=== PATIENT | female | born 1980 | race African-American/Black ===

== ENCOUNTER → 2019-09-15 | Outpatient (CLI) | payer MEDICARE, OTHER ==
[2019-09-15 11:21] LABS: African American GFR (CKD) >90 (>60 ml/min/1.73 sqM); Blood Urea Nitrogen 14 mg/dL (7-17); Non-African American GFR(CKD) >90 (>60 ml/min/1.73 sqM)
--- NOTE | 2019-09-15 12:50 | CT ---
EXAMINATION TYPE: CT abdomen wo/w con DATE OF EXAM: 09/15/2019 COMPARISON: NONE HISTORY: 39 year-old female right renal mass TECHNIQUE: Contiguous axial scanning of the abdomen before and after administration of 100 ml Isovue 300 IV contrast. Delayed images through the kidneys and coronal/sagittal reconstructions performed. CT DLP: 2119.9 mGycm Automated exposure control for dose reduction was used. FINDINGS: Heart normal size without pericardial effusion. Some mild hazy atelectasis at the lung bases without pleural effusion. No focal liver lesion or biliary ductal dilatation. Portal venous system is patent. Multiple gallstones measuring up to 2.1 cm filling the gallbladder lumen. Adrenal glands, left kidney, spleen, pancreas appear within normal limits. There is a 5.5 cm heterogeneously enhancing solid, hypervascular mass along the lateral right kidney, partially exophytic. No extension into the region of the renal sinus. IVC filter is present. No dilated small bowel, free fluid, or free air. No mesenteric or retroperitoneal lymphadenopathy rush ntified. Mild to moderate stool. No pericolonic inflammatory change. No osseous destructive process. IMPRESSION: 1. A PARTIALLY EXOPHYTIC, 5.5 CM HETEROGENEOUSLY ENHANCING, SOLID AND HYPERVASCULAR MASS ALONG THE LA TERAL RIGHT KIDNEY. NO EXTENSION INTO THE REGION OF THE RENAL SINUS. A CLEAR CELL RCC SHOULD BE EXCLU DED. 2. NO EVIDENT METASTATIC DISEASE. 3. CHOLELITHIASIS.
== END | disposition home or self-care (01) ==
LOC: EEVIPCON 10:11 → RADCTMAIN 10:11
PROVIDERS: ATTEND Urology
DX: K80.20 Calculus of gallbladder without cholecystitis without obstruction (principal); N28.89 Other specified disorders of kidney and ureter; D41.01 Neoplasm of uncertain behavior of right kidney; Z88.8 Allergy status to other drugs, medicaments and biological substances
CPT/HCPCS: 82565; 84520; 74170; 36415; Q9967

== ENCOUNTER 2019-10-29 10:39 | Inpatient (IN) | payer MEDICARE, OTHER ==
[2019-10-26 14:33] VITALS: BMI 39.1
--- NOTE | 2019-10-27 11:19 | P.HPIHPCON ---
History of Present Illness H&P Date: 10/29/19 Chief Complaint: right renal mass Ms Christopher is a 39 yo female with hx of 5.5 cm right sided renal mass. Her tumor is fairly complex and discussed with her that nephron sparing surgery is not feasible. I discussed with her the option of open radical nephrectomy and robotic radical nephrectomy. I discussed there is risk of bleeding, infection and injury to nearby organs. Discussed with her risk of injury to the liver, bowel, blood vessels. Discussed with her risk from anesthesia including heart attack, stroke, blood clot and even . Discussed risk of CKD. She understood all risks and agreed to proceed with robotic radical nephrectomy Consent for Procedure: I have explained the operation/procedure to the patient, including the risks, benefits, side effects, alternative therapies (including not receiving the proposed treatment or service), the likelihood of the patient achieving his/her goals, and potential recuperation problems for the procedure/sedation/analgesia, as well as any blood products, if indicated. I also explained to the patient the risks, benefits and side effects of the alternatives, as well as the risks related to not receiving the proposed procedure, care, treatment, or services. - Constitutional Constitutional: Denies anorexia, Denies chills, Denies fever - Cardiovascular Cardiovascular: Denies chest pain, Denies dyspnea on exertion - Respiratory Respiratory: Denies cough, Denies dyspnea - Gastrointestinal Gastrointestinal: Denies abdominal pain, Denies diarrhea, Denies nausea, Denies vomiting Past Medical History Past Medical History: Osteoarthritis (OA) Additional Past Medical History / Comment(s): traumatic brain injury years ago, hx. frequent UTI's History of Any Multi-Drug Resistant Organisms: None Reported Additional Past Surgical History / Comment(s): surg. related to TBI per caregiver Past Anesthesia/Blood Transfusion Reactions: No Reported Reaction Smoking Status: Never smoker - Past Family History Mother Family Medical History: Unable to Obtain Medications and Allergies Home Medications Medication Instructions Recorded Confirmed Type Cetirizine HCl [Zyrtec] 10 mg PO DAILY 10/26/19 10/26/19 History Cholecalciferol [Vitamin D3 (25 2,000 unit PO DAILY 10/26/19 10/26/19 History Mcg = 1000 Iu)] Divalproex Sodium [Depakote] 500 mg PO BID 10/26/19 10/26/19 History Loperamide [Imodium] 2 mg PO DIRECTED PRN 10/26/19 10/26/19 History Melatonin 3 mg PO HS 10/26/19 10/26/19 History Methyl Salicylate/Menthol 1 patch TOPICAL DAILY PRN 10/26/19 10/26/19 History [Salonpas Patch] Sertraline [Zoloft] 50 mg PO HS 10/26/19 10/26/19 History Allergies Allergy/AdvReac Type Severity Reaction Status Date / Time bupropion [From Wellbutrin] Allergy Unknown Verified 10/26/19 14:09 trazodone Allergy Unknown Verified 10/26/19 14:09 Surgical - Exam - General well developed, well nourished, no distress - Respiratory normal expansion, normal respiratory effort - Abdomen Abdomen: soft, non tender Assessment and Plan Assessment: 39 yo female with 5.5 cm right sided renal mass -OR for robotic radical nephrectomy on right
[~2019-10-29 10:39] MED LIST: DEXAMETHASONE SOD PHOSPHATE 10 MG/ML 1 ML VIAL IV ONE; MIDAZOLAM 2 MG/2 ML VIAL IV PRN; ONDANSETRON 4 MG/2 ML VIAL IVP ONE
[2019-10-29] MEDS ORDERED: ACETAMINOPHEN TAB 325 MG TAB PO PRN (11:41)
[2019-10-29] MEDS ORDERED: LIDOCAINE 1% (10MG/ML) FOR IV START INTRADERMA ONE ×2 (11:45)
[2019-10-29] MEDS: LACTATED RINGERS 1,000 ML IV SCH (11:45)
[2019-10-29] MEDS: HEPARIN SODIUM,PORCINE 5,000 UNIT/ML 1 ML VIAL SQ SCH ×2 (12:25→22:58)
[2019-10-29] MEDS ORDERED: LIDOCAINE 1% INJ 10MG/ML (20 ML MDV) ONE (12:51)
[2019-10-29] MEDS ORDERED: ePHEDrine SULFATE/0.9% NACL/PF 50 MG/5 ML SYRINGE IV ONE (12:51)
[2019-10-29] MEDS ORDERED: GLYCOPYRROLATE 0.2 MG/ML 2 ML VIAL ONE (12:51)
[2019-10-29] MEDS ORDERED: SUCCINYLCHOLINE CHLORIDE VIAL 200 MG/10 ML VIAL IV ONE (12:51)
[2019-10-29] MEDS ORDERED: PROPOFOL 10 MG/ML 20 ML VIAL IV ONE (12:51)
[2019-10-29] MEDS ORDERED: fentaNYL (PF) 50 MCG/ML 2 ML AMP ONE (12:51)
[2019-10-29] MEDS ORDERED: ROCURONIUM BROMIDE 10 MG/ML 5 ML VIAL IV ONE (12:51)
[2019-10-29] MEDS ORDERED: MIDAZOLAM 2 MG/2 ML VIAL ONE (12:51)
[2019-10-29] MEDS ORDERED: NEOSTIGMINE 1 MG/ML 10 ML VIAL ONE (12:51)
[2019-10-29] MEDS ORDERED: BUPIVACAIN-EPI 0.25%-1:200,000 30 ML VIAL SQ ONE ×2 (13:30→14:58)
--- NOTE | 2019-10-29 15:02 | P.OP ---
Date of Procedure: 10/29/19 Preoperative Diagnosis: right renal mass Postoperative Diagnosis: same Procedure(s) Performed: Robotic assisted radical nephrectomy Anesthesia: RIGO Surgeon: Dion Pepper Driver Utility Worker #1: Mitzi Stanley Estimated Blood Loss (ml): 75 Pathology: other (right kidney) Condition: stable Disposition: PACU Indications for Procedure: Ms Christopher is a 39 yo female with hx of 5.5 cm right sided renal mass. Her tumor is fairly complex and discussed with her that nephron sparing surgery is not feasible. I discussed with her the option of open radical nephrectomy and robotic radical nephrectomy. She elected to proceed with robotic assisted radical nephrectomy. I discussed there is risk of bleeding, infection and injury to nearby organs. Discussed with her risk of injury to the liver, bowel, blood vessels. Discussed with her risk from anesthesia including heart attack, stroke, blood clot and even . Discussed risk of CKD. She understood all risks and agreed to proceed with robotic radical nephrectomy Operative Findings: large right sided renal mass Description of Procedure: The patient was taken to the operating room . General anesthesia was induced. She was prepped and draped in sterile fashion, and was placed in modified flank position . All pressure points were padded. The abdominal insufflation was achieved with the Veress needle. A 8 mm camera port was placed. Robotic trocars and behavioral health assistant ports were placed under direct vision. a 5 mm liver retractor was placed. . The robot was docked into place. The colon was mobilized medially by incising along the white line of Toldt. Next the duodenum was kocherized. At this time the vena cava was exposed. Next the ureter was retracted anteriorly off the psoas muscle. Dissection proceeded cranially towards the renal hilum. A second renal artery at the level of lower pole was encountered and ligated using the vascular stapler. The upper pole attachments were dissected. Care was taken to safely mobilize the kidney free of all visceral structures.The renal vessels were dissected. At this point the renal vessels were exposed. Next the renal hilum was ligated using the vascular stapler. The adrenal gland was mobilized. Lateral and remaining kidney attachments were released. The ureter was dissected further distally. The ureter was ligated using the vascular stapler. The kidney was placed in an Endo Catch bag. Hemostatic agent were applied to the surgical field. The robot was then de-docked and the specimen was then removed by extending the behavioral health assistant port. Fascia was closed with one layer using #1 Stratafix. Skin was closed with subcuticular sutures and dermabond. The patient was awoken from general anesthesia in stable condition. Please refer to the final pathology report for final diagnosis
[2019-10-29] MEDS: HYDROmorphone 0.5 MG/0.5 ML SYRINGE IVP PRN ×2 (16:24→16:35)
[2019-10-29] MEDS: D5-0.45% NACL WITH KCL 20MEQ/L 1,000 ML IV SCH (18:04)
[2019-10-29] MEDS: HYDROmorphone 1 MG/ML 1 ML SYRINGE IVP PRN ×2 (18:05→20:12)
[2019-10-29] MEDS: MELATONIN 3 MG TABLET PO SCH (20:08)
[2019-10-29] MEDS: SERTRALINE 50 MG TAB PO SCH (20:08)
[2019-10-29] MEDS: DIVALPROEX 500 MG TABLET.DR PO SCH (20:08)
[2019-10-29 22:24] LABS: Basophils % (A) 0 %; Eosinophils # (A) 0.1 k/uL (0-0.7); Eosinophils % (A) 1 %; HCT 43.1 % (34.0-46.0); HGB 13.2 gm/dL (11.4-16.0); Hypochromasia Slight; Lymphocytes % (A) 13 %; MCH 30.2 pg (25.0-35.0); MCHC 30.7 g/dL (31.0-37.0); MCV 98.5 fL (80.0-100.0); Macrocytosis Slight; Mean Platelet Volume 9.2; Monocytes # (A) 0.6 k/uL (0-1.0); Monocytes % (A) 7 %; Neutrophils # (A) 6.3 k/uL (1.3-7.7); Neutrophils % (A) 78 %; Platelet Count 124 k/uL (150-450); RBC 4.38 m/uL (3.80-5.40)
[2019-10-30] MEDS: D5-0.45% NACL WITH KCL 20MEQ/L 1,000 ML IV SCH ×4 (02:32→23:53)
[2019-10-30] MEDS: DIVALPROEX 500 MG TABLET.DR PO SCH ×2 (07:04→21:08)
[2019-10-30] MEDS: HEPARIN SODIUM,PORCINE 5,000 UNIT/ML 1 ML VIAL SQ SCH ×3 (07:04→23:44)
[2019-10-30] MEDS: HYDROmorphone 1 MG/ML 1 ML SYRINGE IVP PRN ×5 (07:41→21:14)
[2019-10-30] MEDS: MELATONIN 3 MG TABLET PO SCH (21:08)
[2019-10-30] MEDS: SERTRALINE 50 MG TAB PO SCH (21:08)
--- NOTE | 2019-10-30 23:10 | P.PN ---
Subjective Progress Note Date: 10/30/19 Principal diagnosis: right renal mass POD #1 S/P right sided nephrectomy No acute overnight event, still having Incisional pain this am. Denies any N/V. Has been ambulating w/o difficulty Objective - Vital Signs Vital signs: Vital Signs Temp 98.2 F 10/30/19 20:53 Pulse 104 H 10/30/19 20:53 Resp 18 10/30/19 20:53 BP 138/95 10/30/19 20:53 Pulse Ox 93 L 10/30/19 20:53 Intake & Output 10/30/19 10/30/19 10/31/19 06:59 18:59 06:59 Intake Total 590 2380 Output Total 700 1590 Balance -110 790 Intake: Intake, IV Titration 1500 Amount D5-0.45% NaCl with KCl 1500 20Meq/l 1,000 ml @ 125 mls/hr IV .Q8H PAIGE Rx#: [id number] Oral 590 880 Output: Urine 700 1590 Uretheral (Funes) 400 550 Other: Voiding Method Indwelling Catheter Toilet # Voids 1 - Constitutional General appearance: Present: no acute distress - Gastrointestinal General gastrointestinal: Present: soft, tenderness (along the incision ). A bsent: distended - Psychiatric Psychiatric: Present: A&O x's 3 - Labs CBC & Chem 7: 10/29/19 21:54 Assessment and Plan Assessment: S/P right sided radical nephrectomy. Still having pain this am Plan: -regular diet -Ambulate -D/C funes -Pain control -Discharge home tomorrow
[2019-10-31] MEDS: LACTATED RINGERS 1,000 ML IV SCH (02:42)
[2019-10-31 04:49] VITALS: BP 148/94; PULSE 88; RESP 16
[2019-10-31 07:31] VITALS: TEMP 98.7
[2019-10-31] MEDS: DIVALPROEX 500 MG TABLET.DR PO SCH (08:23)
[2019-10-31] MEDS: HEPARIN SODIUM,PORCINE 5,000 UNIT/ML 1 ML VIAL SQ SCH (08:23)
--- NOTE | 2019-10-31 10:00 | P.DS ---
Providers Date of admission: 10/29/19 10:39 Expected date of discharge: 10/31/19 Attending physician: Dion Pepper MD Primary care physician: [facility] Course: The patient is a 39-year-old female with a 5.5 cm partially solid right renal mass consistent with renal cell carcinoma who underwent laparoscopic assisted right radical nephrectomy on the date of admission. She had moderate pain the first day postop but her pain was tolerable with oral analgesics by the second day postop. She was discharged on the second day postop at which time her incision appeared to be healing well. The patient was ambulatory and tolerating a regular diet. The pathology report was not completed at the time of discharge. She will be seen back by Dr. Pepper in 1 week for follow-up at which time he will review the report with her. She is to continue light activity and has no dietary limitations. Procedures: Laparoscopic-assisted right radical nephrectomy 11/28/2019 Patient Condition at Discharge: Good Plan - Discharge Summary Discharge Rx Participant: No New Discharge Prescriptions: No Action Cholecalciferol [Vitamin D3 (25 Mcg = 1000 Iu)] 2,000 unit PO DAILY Sertraline [Zoloft] 50 mg PO HS Cetirizine HCl [Zyrtec] 10 mg PO DAILY Methyl Salicylate/Menthol [Salonpas Patch] 1 patch TOPICAL DAILY PRN PRN Reason: Pain Melatonin 3 mg PO HS Loperamide [Imodium] 2 mg PO DIRECTED PRN PRN Reason: loose stools Divalproex Sodium [Depakote] 500 mg PO BID Discharge Medication List Cetirizine HCl [Zyrtec] 10 mg PO DAILY 10/26/19 [History] Cholecalciferol [Vitamin D3 (25 Mcg = 1000 Iu)] 2,000 unit PO DAILY 10/26/19 [History] Divalproex Sodium [Depakote] 500 mg PO BID 10/26/19 [History] Loperamide [Imodium] 2 mg PO DIRECTED PRN 10/26/19 [History] Melatonin 3 mg PO HS 10/26/19 [History] Methyl Salicylate/Menthol [Salonpas Patch] 1 patch TOPICAL DAILY PRN 10/26/19 [History] Sertraline [Zoloft] 50 mg PO HS 10/26/19 [History] Follow up Appointment(s)/Referral(s): Dion Pepper MD [STAFF PHYSICIAN] - 1 Week Discharge Disposition: HOME SELF-CARE
== END 2019-10-31 14:10 | disposition home or self-care (01) | DRG 658 ==
LOC: 2ORMAIN 10:39 → EDSTATUS 12:45 → 5NMEDONC 15:16
PROVIDERS: ADMIT Urology; ATTEND Urology
PROC: 8E0W4CZ Robotic Assisted Procedure of Trunk Region, Percutaneous Endoscopic Approach (ICD-10-PCS; principal; 2019-10-29 12:45)
PROC: 0TT04ZZ Resection of Right Kidney, Percutaneous Endoscopic Approach (ICD-10-PCS; principal; 2019-10-29 12:45)
DX: C64.1 Malignant neoplasm of right kidney, except renal pelvis (principal); M19.90 Unspecified osteoarthritis, unspecified site; F32.9 Major depressive disorder, single episode, unspecified; Z98.890 Other specified postprocedural states; Z79.899 Other long term (current) drug therapy; Z87.820 Personal history of traumatic brain injury; Z87.440 Personal history of urinary (tract) infections; Z88.8 Allergy status to other drugs, medicaments and biological substances
CPT/HCPCS: 81025; 85025; 86850; 86900; 86901; 88307; 94002